=== PATIENT | female | born 1965 | race Caucasian/White ===

== ENCOUNTER 2021-12-20 10:03 | Emergency (ER) | payer MEDICARE, OTHER ==
[~2021-12-20] VITALS: Ht 167.6 cm; Wt 94.0 kg
[2021-12-20 13:57] LABS: BASO % 0.5 % (0.0-1.0); EOS % 0.4 % (0.0-3.0); HEMOGLOBIN 14.3 g/dl (12.0-15.5); LYMPH # 2.1 10^3/uL (1.5-5.0); LYMPH % 24.9 % (24.0-44.0); MEAN CORPUSCULAR HEMOGLOBIN 27.1 pg (27.0-33.0); MEAN CORPUSCULAR HGB CONC 33.3 g/dl (32.0-36.5); MEAN CORPUSCULAR VOLUME 81.6 fl (80.0-96.0); MONO # 0.9 10^3/uL (0.0-0.8); MONO % 10.3 % (2.0-8.0); NEUTROPHILS # 5.4 10^3/uL (1.5-8.5); NEUTROPHILS % 63.5 % (36.0-66.0); PLATELET COUNT, AUTOMATED 337 10^3/uL (150-450); RED BLOOD COUNT 5.27 10^6/uL (4.00-5.40); WHITE BLOOD COUNT 8.5 10^3/uL (4.0-10.0)
[2021-12-20 14:39] LABS: ALBUMIN 4.5 GM/DL (3.2-5.2); BILIRUBIN,DIRECT 0.2 MG/DL (0.0-0.2); BILIRUBIN,TOTAL 0.6 MG/DL (0.2-1.0); CALCIUM LEVEL 10.3 MG/DL (8.5-10.1); CREATININE FOR GFR 1.11 MG/DL (0.55-1.30); GLOMERULAR FILTRATION RATE 53.9 (>51); POTASSIUM SERUM 3.4 MEQ/L (3.5-5.1); TOTAL PROTEIN 7.8 GM/DL (6.4-8.2)
[2021-12-20] MEDS ORDERED: NS 1,000 ML IV ONE (14:50)
[2021-12-20] MEDS ORDERED: ONDANSETRON 4MG 2ML VIAL IV ONE (15:05)
[2021-12-20] MEDS ORDERED: ONDA4TAB6 PO (16:24)
[2021-12-20] MEDS ORDERED: CIPR-249 PO (16:24)
[2021-12-20] MEDS ORDERED: CIPROFLOXACIN 500MG TABLET PO ONE (16:25)
[2021-12-20 16:46] VITALS: BP 132/66
== END 2021-12-20 17:17 | disposition home or self-care (01) ==
LOC: M ED 10:03
DX: N10 Acute pyelonephritis (principal); E11.9 Type 2 diabetes mellitus without complications; I10 Essential (primary) hypertension; E78.5 Hyperlipidemia, unspecified; M79.7 Fibromyalgia; E03.9 Hypothyroidism, unspecified; F41.9 Anxiety disorder, unspecified; F32.9 Major depressive disorder, single episode, unspecified; Z87.442 Personal history of urinary calculi; Z91.018 Allergy to other foods; Z91.89 Other specified personal risk factors, not elsewhere classified; Z91.040 Latex allergy status
CPT/HCPCS: 74176; 80048; 80076; 81000; 81015; 83690; 85025; 87088; 87186; 96361; 96374; 99283; J2405

== ENCOUNTER 2021-12-27 08:56 | Emergency (ER) | payer MEDICARE ==
[~2021-12-27] VITALS: Ht 167.6 cm; Wt 91.8 kg
[~2021-12-27 08:56] MED LIST: CIPR-249 PO; ONDA4TAB6 PO
[2021-12-27 09:52] LABS: BASO % 0.4 % (0.0-1.0); EOS # 0.1 10^3/uL (0.0-0.5); EOS % 0.8 % (0.0-3.0); HEMATOCRIT 42.5 % (36.0-47.0); HEMOGLOBIN 13.9 g/dl (12.0-15.5); LYMPH # 1.6 10^3/uL (1.5-5.0); LYMPH % 16.7 % (24.0-44.0); MEAN CORPUSCULAR HEMOGLOBIN 27.4 pg (27.0-33.0); MEAN CORPUSCULAR HGB CONC 32.7 g/dl (32.0-36.5); MEAN CORPUSCULAR VOLUME 83.7 fl (80.0-96.0); NEUTROPHILS # 6.6 10^3/uL (1.5-8.5); NEUTROPHILS % 70.9 % (36.0-66.0); PLATELET COUNT, AUTOMATED 343 10^3/uL (150-450); RED BLOOD COUNT 5.08 10^6/uL (4.00-5.40); WHITE BLOOD COUNT 9.3 10^3/uL (4.0-10.0)
[2021-12-27 10:18] LABS: CALCIUM LEVEL 9.5 MG/DL (8.5-10.1); CREATININE FOR GFR 1.09 MG/DL (0.55-1.30); GLOMERULAR FILTRATION RATE 55.1 (>51); POTASSIUM SERUM 4.1 MEQ/L (3.5-5.1)
[2021-12-27] MEDS ORDERED: METOCLOPRAMIDE 10MG TAB PO ONE (11:50)
[2021-12-27] MEDS ORDERED: CIPR-249 PO (12:53)
[2021-12-27 13:19] VITALS: BP 117/76
== END 2021-12-27 13:21 | disposition home or self-care (01) ==
LOC: M ED 08:56
DX: N39.0 Urinary tract infection, site not specified (principal); E11.9 Type 2 diabetes mellitus without complications; I10 Essential (primary) hypertension; E78.5 Hyperlipidemia, unspecified; M79.7 Fibromyalgia; Z79.899 Other long term (current) drug therapy; Z88.8 Allergy status to other drugs, medicaments and biological substances; Z91.018 Allergy to other foods; Z91.040 Latex allergy status

== ENCOUNTER 2022-10-22 09:54 | Inpatient (IN) | payer MEDICARE ==
[2022-10-22] VITALS (25 sets, daily range): BP systolic 65–101; BP diastolic 28–54; TEMP 97.5; O2SAT 80–100
[~2022-10-22] VITALS: Ht 167.6 cm; Wt 96.2 kg
[2022-10-22] MEDS ORDERED: LEVO125T4 PO (10:19)
[2022-10-22] MEDS ORDERED: OLME20TA2 PO (10:19)
[2022-10-22] MEDS ORDERED: METF500T13 PO (10:19)
[2022-10-22] MEDS ORDERED: LOVA20TA2 PO (10:19)
[2022-10-22] MEDS ORDERED: BUPR300T92 PO (10:19)
[2022-10-22] MEDS ORDERED: POTA-151 PO (10:19)
[2022-10-22] MEDS ORDERED: HYDR50TAB PO (10:19)
[2022-10-22 11:06] LABS: BASO % 0.2 % (0.0-1.0); EOS % 0.1 % (0.0-3.0); HEMATOCRIT 41.2 % (36.0-47.0); HEMOGLOBIN 13.9 g/dl (12.0-15.5); LYMPH # 1.1 10^3/uL (1.5-5.0); LYMPH % 6.8 % (24.0-44.0); MEAN CORPUSCULAR HEMOGLOBIN 27.8 pg (27.0-33.0); MEAN CORPUSCULAR HGB CONC 33.7 g/dl (32.0-36.5); MEAN CORPUSCULAR VOLUME 82.4 fl (80.0-96.0); MONO # 0.3 10^3/uL (0.0-0.8); NEUTROPHILS # 14.7 10^3/uL (1.5-8.5); NEUTROPHILS % 90.5 % (36.0-66.0); PLATELET COUNT, AUTOMATED 341 10^3/uL (150-450); WHITE BLOOD COUNT 16.2 10^3/uL (4.0-10.0)
[2022-10-22] MEDS ORDERED: KETOROLAC 30 MG/ML 1ML VIAL IV ONE (11:15)
[2022-10-22] MEDS ORDERED: NS 1,000 ML IV ONE ×5 (11:15→21:25)
[2022-10-22] MEDS ORDERED: ONDANSETRON 4MG 2ML VIAL IV ONE ×2 (11:15→17:30)
[2022-10-22 11:31] LABS: ALBUMIN 4.3 G/DL (3.2-5.2); BILIRUBIN,DIRECT 0.3 MG/DL (<0.4); BILIRUBIN,TOTAL 0.9 MG/DL (0.3-1.2); CALCIUM LEVEL 9.8 MG/DL (8.5-10.1); CREATININE FOR GFR 1.05 MG/DL (0.55-1.30); GLOMERULAR FILTRATION RATE 57.3 (>51); POTASSIUM SERUM 4.8 MMOL/L (3.5-5.1); TOTAL PROTEIN 7.1 G/DL (5.7-8.2)
[2022-10-22] MEDS ORDERED: ISOVUE-370 76% 100ML VIAL As Ordered ONE (12:15)
[2022-10-22] MEDS ORDERED: METOCLOPRAMIDE INJ 10MG/2ML VIAL IV ONE (13:35)
[2022-10-22] MEDS ORDERED: cefTRIAXone SOD 1 GM in D5W MINI-BAG PLUS 50 ML IV ONE (13:35)
[2022-10-22] MEDS ORDERED: ACETAMINOPHEN 325 MG TAB PO ONE (13:40)
[2022-10-22] MEDS ORDERED: MORPHINE 4 MG/ML 1ML VIAL IV ONE (14:15)
[2022-10-22] MEDS ORDERED: MED REC IN PROGRESS XX SCH (14:45)
[2022-10-22] MEDS ORDERED: GLUCOSE 4GM CHEW TABLET PO PRN (14:55)
[2022-10-22] MEDS ORDERED: GLUCAGON INJ 1MG VIAL SC PRN (14:55)
[2022-10-22] MEDS ORDERED: D5W/0.45% SODIUM CHLORIDE 1,000 ML IV SCH ×2 (14:55→19:00)
[2022-10-22] MEDS ORDERED: HYDROMORPHONE HCL 0.5 MG/ 0.5 ML SYRINGE IV PRN (14:55)
[2022-10-22] MEDS ORDERED: DEXTROSE 50% 50ML SYRINGE IV PRN (14:55)
[2022-10-22 15:26] LABS: RSV AMPLIFICATION NEGATIVE (NEGATIVE)
[2022-10-22] MEDS ORDERED: FLUT15.820 (15:28)
[2022-10-22] MEDS ORDERED: LEVO137T2 PO (15:28)
[2022-10-22] MEDS ORDERED: HOME MED LIST COMPLETE! XX SCH (15:30)
[2022-10-22] MEDS: HYDROMORPHONE HCL 0.5 MG/ 0.5 ML SYRINGE IV PRN (17:04)
[2022-10-22] MEDS ORDERED: ACETAMINOPHEN 1000MG 100ML IV BAG IV ONE (17:05)
[2022-10-22] MEDS ORDERED: MIDAZOLAM INJ 2MG/2ML VIAL As Ordered ONE (17:31)
[2022-10-22] MEDS ORDERED: fentaNYL 100 MCG/2 ML INJECTION As Ordered ONE (17:31)
[2022-10-22] MEDS ORDERED: propofoL 200 MG/20 ML VIAL As Ordered ONE (17:32)
[2022-10-22] MEDS ORDERED: LIDOCAINE 2% 100MG/5ML SDV (FOR ANES.) As Ordered ONE (17:32)
[2022-10-22 17:53] LABS: IONIZED CALCIUM 3.8 MG/DL (4.5-5.3)
[2022-10-22] MEDS ORDERED: ROCURONIUM BROMIDE 50MG/5ML VIAL As Ordered ONE (18:27)
[2022-10-22 18:32] LABS: CALCIUM LEVEL 8.2 MG/DL (8.5-10.1); CREATININE FOR GFR 1.41 MG/DL (0.55-1.30); GLOMERULAR FILTRATION RATE 40.8 (>51); MAGNESIUM LEVEL 1.3 MG/DL (1.8-2.4); POTASSIUM SERUM 3.9 MMOL/L (3.5-5.1)
[2022-10-22] MEDS: PIPERACILLIN/TAZOBACTAM SOD 3.375 GM in D5W MINI-BAG PLUS 50 ML IV SCH (18:38)
[2022-10-22] MEDS ORDERED: SUCCINYLCHOLINE 100MG/5ML SYRINGE As Ordered ONE (18:41)
[2022-10-22] MEDS ORDERED: PHENYLephrine 500MCG 5ML (100MCG/ML) SYRINGE As Ordered ONE (18:47)
[2022-10-22] MEDS ORDERED: VASOPRESSIN INJ 20UNITS/ML 1ML VIAL As Ordered ONE (18:48)
[2022-10-22] MEDS: LIDOCAINE 2% 5ML JELLY UROJET As Ordered ONE ×2 (18:49→18:53)
[2022-10-22] MEDS: ISOVUE-300 61% 100ML VIAL As Ordered ONE ×2 (18:51→18:55)
[2022-10-22] MEDS ORDERED: CALCIUM GLUCONATE 1,000 MG in D5W MINI-BAG PLUS 100 ML IV ONE ×2 (19:00→22:00)
[2022-10-22] MEDS ORDERED: PHENYLEPHRINE 10MG/ML 1ML VIAL As Ordered ONE (20:18)
[2022-10-22] MEDS ORDERED: PHENYLEPHRINE HCL INJ 10 MG in D5W 100 ML IV SCH (20:30)
[2022-10-22] MEDS: INSULIN LISPRO (NovoLOG) PER UNIT SC SCH (21:30)
[2022-10-22] MEDS ORDERED: NS 1,000 ML IV SCH (21:50)
[2022-10-22] MEDS: MAG SULF 1GM/100ML (MAG RUN) 1 GM in IV 1 EA IV SCH ×3 (22:16→23:55)
[2022-10-22] MEDS: NOREPINEPHRINE 4MG IN D5 250ML 4 MG in IV 1 EA IV SCH ×2 (22:20)
[2022-10-23] VITALS (102 sets, daily range): BP systolic 77–160; BP diastolic 47–86; TEMP 96.9–97.8; O2SAT 88–99
[2022-10-23] MEDS: MAG SULF 1GM/100ML (MAG RUN) 1 GM in IV 1 EA IV SCH (00:59)
[2022-10-23] MEDS: PIPERACILLIN/TAZOBACTAM SOD 3.375 GM in D5W MINI-BAG PLUS 50 ML IV SCH ×4 (01:07→18:04)
[2022-10-23] MEDS: NOREPINEPHRINE 4MG IN D5 250ML 4 MG in IV 1 EA IV SCH ×12 (01:12→18:31)
[2022-10-23] MEDS: HYDROCORTISONE 100MG/2ML VIAL IV SCH ×4 (02:46→20:32)
[2022-10-23] MEDS: LEVOTHYROXINE 137MCG TABLET (0.137MG) PO SCH (05:32)
[2022-10-23] MEDS: INSULIN LISPRO (NovoLOG) PER UNIT SC SCH ×4 (05:32→18:00)
[2022-10-23 05:53] LABS: HEMATOCRIT 35.1 % (36.0-47.0); HEMOGLOBIN 11.4 g/dl (12.0-15.5); MEAN CORPUSCULAR HEMOGLOBIN 27.8 pg (27.0-33.0); MEAN CORPUSCULAR HGB CONC 32.5 g/dl (32.0-36.5); MEAN CORPUSCULAR VOLUME 85.6 fl (80.0-96.0)
[2022-10-23 06:03] LABS: PLATELET COUNT, AUTOMATED 177 10^3/uL (150-450)
[2022-10-23 06:11] LABS: CALCIUM LEVEL 8.1 MG/DL (8.5-10.1); CREATININE FOR GFR 1.49 MG/DL (0.55-1.30); GLOMERULAR FILTRATION RATE 38.3 (>51); POTASSIUM SERUM 3.3 MMOL/L (3.5-5.1)
[2022-10-23] MEDS ORDERED: NS 500 ML IV ONE (06:20)
[2022-10-23] MEDS ORDERED: KCL 20MEQ IN 100ML SWI (KRUN) 20 MEQ in IV 1 EA IV ONE ×2 (07:00)
[2022-10-23] MEDS: ONDANSETRON 4MG 2ML VIAL IV PRN ×2 (07:09→13:12)
[2022-10-23] MEDS: ACETAMINOPHEN TAB 650MG DOSE (2X325MG) PO PRN (07:39)
[2022-10-23 08:05] LABS: LYMPHOCYTES 3 % (16-44); MONOCYTES 5 % (0-5); MYELOCYTES 1 % (0-0); NEUTROPHILS 69 % (28-66); PLATELET ESTIMATE NORMAL (NORMAL)
[2022-10-23 08:06] LABS: DOHLE BODIES 1+; TOXIC VACUOLATION 2+
[2022-10-23] MEDS ORDERED: SUMAtriptan SUCCINATE 6MG/0.5ML VIAL SC ONE (08:40)
[2022-10-23] MEDS ORDERED: PROCHLORPERAZINE 5MG TAB PO PRN (08:40)
[2022-10-23] MEDS ORDERED: PROCHLORPERAZINE 10MG 2ML VIAL IV ONE (08:40)
[2022-10-23] MEDS: buPROPion **XL** TABLET 150MG (WELLBUTRIN XL) PO SCH (08:57)
[2022-10-23] MEDS: HYDROMORPHONE HCL 0.5 MG/ 0.5 ML SYRINGE IV PRN ×2 (09:04→13:38)
[2022-10-23] MEDS ORDERED: VASOPRESSIN INJ 20 UNITS in NS 499 ML IV SCH (13:55)
[2022-10-23] MEDS ORDERED: cefTRIAXone SOD 1 GM in D5W MINI-BAG PLUS 50 ML IV SCH (14:00)
[2022-10-23] MEDS: VASOPRESSIN INJ 20 UNITS in NS 499 ML IV SCH ×2 (14:05→21:30)
[2022-10-23] MEDS ORDERED: diphenhydrAMINE 50MG/ML VIAL IV ONE (17:30)
[2022-10-23] MEDS ORDERED: dexAMETHasone 20MG/5ML VIAL IV ONE (17:30)
[2022-10-23] MEDS ORDERED: LIDOCAINE 5% (LIDODERM) PATCH TD PRN (18:10)
[2022-10-23] MEDS: SIMVASTATIN 20 MG TAB PO SCH (20:32)
[2022-10-23] MEDS: KETOROLAC 30 MG/ML 1ML VIAL IV PRN (21:50)
[2022-10-24] VITALS (52 sets, daily range): BP systolic 90–117; BP diastolic 53–73; TEMP 97.6–99.3; O2SAT 83–98
[2022-10-24] MEDS: NOREPINEPHRINE 4MG IN D5 250ML 4 MG in IV 1 EA IV SCH ×2 (02:25)
[2022-10-24] MEDS: KETOROLAC 30 MG/ML 1ML VIAL IV PRN ×2 (04:13→20:40)
[2022-10-24 04:30] LABS: HEMATOCRIT 32.2 % (36.0-47.0); HEMOGLOBIN 10.9 g/dl (12.0-15.5); MEAN CORPUSCULAR HEMOGLOBIN 28.4 pg (27.0-33.0); MEAN CORPUSCULAR HGB CONC 33.9 g/dl (32.0-36.5); MEAN CORPUSCULAR VOLUME 83.9 fl (80.0-96.0); PLATELET COUNT, AUTOMATED 128 10^3/uL (150-450); RED BLOOD COUNT 3.84 10^6/uL (4.00-5.40)
[2022-10-24 04:45] LABS: WHITE BLOOD COUNT 36.4 10^3/uL (4.0-10.0)
[2022-10-24 04:59] LABS: CALCIUM LEVEL 8.6 MG/DL (8.5-10.1); CREATININE FOR GFR 1.13 MG/DL (0.55-1.30); GLOMERULAR FILTRATION RATE 52.6 (>51); PHOSPHORUS LEVEL 3.6 MG/DL (2.5-4.9); POTASSIUM SERUM 3.8 MMOL/L (3.5-5.1)
[2022-10-24] MEDS: INSULIN LISPRO (NovoLOG) PER UNIT SC SCH ×5 (05:00→21:00)
[2022-10-24 05:13] LABS: LYMPHOCYTES 1 % (16-44); METAMYELOCYTES 5 % (0-0); MONOCYTES 1 % (0-5); MYELOCYTES 8 % (0-0); NEUTROPHILS 79 % (28-66)
[2022-10-24 05:14] LABS: PLATELET ESTIMATE NORMAL (NORMAL)
[2022-10-24] MEDS: LEVOTHYROXINE 125MCG TABLET (0.125MG) PO SCH (05:58)
[2022-10-24] MEDS: PIPERACILLIN/TAZOBACTAM SOD 3.375 GM in D5W MINI-BAG PLUS 50 ML IV SCH ×3 (05:59)
[2022-10-24] MEDS: buPROPion **XL** TABLET 150MG (WELLBUTRIN XL) PO SCH (09:29)
[2022-10-24] MEDS: cefTRIAXone SOD 1 GM in D5W MINI-BAG PLUS 50 ML IV SCH (12:59)
[2022-10-24] MEDS ORDERED: GLUCOSE 4GM CHEW TABLET PO PRN (17:30)
[2022-10-24] MEDS ORDERED: DEXTROSE 50% 50ML SYRINGE IV PRN (17:30)
[2022-10-24] MEDS ORDERED: GLUCAGON INJ 1MG VIAL SC PRN (17:30)
[2022-10-24] MEDS: ONDANSETRON 4MG 2ML VIAL IV PRN (17:54)
[2022-10-24] MEDS ORDERED: NEOSPORIN OINT 0.9 GM PKT TOP ONE (19:50)
[2022-10-24] MEDS: SIMVASTATIN 20 MG TAB PO SCH (20:40)
[2022-10-24] MEDS: ENOXAPARIN 40MG/0.4ML SYRINGE (J1650 PER 10MG) SC SCH (20:41)
[2022-10-25 00:07] VITALS: BP 112/56; TEMP 97; O2SAT 97
[2022-10-25 04:17] VITALS: BP 102/57; TEMP 97.3; O2SAT 94
[2022-10-25 04:48] LABS: HEMATOCRIT 30.8 % (36.0-47.0); HEMOGLOBIN 10.4 g/dl (12.0-15.5); MEAN CORPUSCULAR HEMOGLOBIN 28.5 pg (27.0-33.0); MEAN CORPUSCULAR HGB CONC 33.8 g/dl (32.0-36.5); MEAN CORPUSCULAR VOLUME 84.4 fl (80.0-96.0); PLATELET COUNT, AUTOMATED 118 10^3/uL (150-450); RED BLOOD COUNT 3.65 10^6/uL (4.00-5.40)
[2022-10-25 04:50] LABS: WHITE BLOOD COUNT 32.7 10^3/uL (4.0-10.0)
[2022-10-25 05:17] LABS: LYMPHOCYTES 2 % (16-44); METAMYELOCYTES 1 % (0-0); MONOCYTES 1 % (0-5); MYELOCYTES 1 % (0-0); NEUTROPHILS 93 % (28-66); PLATELET ESTIMATE NORMAL (NORMAL)
[2022-10-25 05:19] LABS: CALCIUM LEVEL 8.5 MG/DL (8.5-10.1); CREATININE FOR GFR 1.09 MG/DL (0.55-1.30); GLOMERULAR FILTRATION RATE 54.9 (>51); POTASSIUM SERUM 3.9 MMOL/L (3.5-5.1)
[2022-10-25] MEDS: LEVOTHYROXINE 137MCG TABLET (0.137MG) PO SCH (06:03)
[2022-10-25] MEDS: INSULIN LISPRO (NovoLOG) PER UNIT SC SCH ×4 (07:30→20:32)
[2022-10-25 08:00] VITALS: BP 113/68; TEMP 97.8; O2SAT 98
[2022-10-25] MEDS ORDERED: LACTOBACILLUS ACIDOPHILUS CAP (BACID) PO SCH (09:10)
[2022-10-25] MEDS: buPROPion **XL** TABLET 150MG (WELLBUTRIN XL) PO SCH (09:52)
[2022-10-25 12:00] VITALS: BP 132/69; TEMP 98.3; O2SAT 96
[2022-10-25] MEDS: cefTRIAXone SOD 1 GM in D5W MINI-BAG PLUS 50 ML IV SCH (12:05)
[2022-10-25] MEDS: LACTOBACILLUS ACIDOPHILUS CAP (BACID) PO SCH ×2 (12:05→20:32)
[2022-10-25 16:00] VITALS: BP 125/77; TEMP 97.9; O2SAT 96
[2022-10-25 19:48] VITALS: BP 116/56; TEMP 98.1; O2SAT 96
[2022-10-25] MEDS: SIMVASTATIN 20 MG TAB PO SCH (20:32)
[2022-10-25] MEDS: ENOXAPARIN 40MG/0.4ML SYRINGE (J1650 PER 10MG) SC SCH (20:32)
[2022-10-26 00:31] VITALS: BP 153/70; TEMP 98; O2SAT 98
[2022-10-26 04:39] LABS: BASO # 0.1 10^3/uL (0.0-0.2); BASO % 0.3 % (0.0-1.0); EOS # 0.2 10^3/uL (0.0-0.5); EOS % 0.9 % (0.0-3.0); HEMATOCRIT 32.6 % (36.0-47.0); HEMOGLOBIN 10.7 g/dl (12.0-15.5); LYMPH # 1.7 10^3/uL (1.5-5.0); LYMPH % 9.9 % (24.0-44.0); MEAN CORPUSCULAR HEMOGLOBIN 27.4 pg (27.0-33.0); MEAN CORPUSCULAR HGB CONC 32.8 g/dl (32.0-36.5); MEAN CORPUSCULAR VOLUME 83.6 fl (80.0-96.0); MONO # 1.2 10^3/uL (0.0-0.8); NEUTROPHILS # 13.9 10^3/uL (1.5-8.5); NEUTROPHILS % 81.3 % (36.0-66.0); PLATELET COUNT, AUTOMATED 142 10^3/uL (150-450); WHITE BLOOD COUNT 17.2 10^3/uL (4.0-10.0)
[2022-10-26 05:00] LABS: BLOOD UREA NITROGEN 28 MG/DL (9-23); CALCIUM LEVEL 8.2 MG/DL (8.5-10.1); CARBON DIOXIDE LEVEL 28 MMOL/L (20-31); CHLORIDE LEVEL 109 MMOL/L (98-107); CREATININE FOR GFR 0.95 MG/DL (0.55-1.30); GLOMERULAR FILTRATION RATE > 60.0 (>51); GLUCOSE, FASTING 76 MG/DL (60-100); POTASSIUM SERUM 3.6 MMOL/L (3.5-5.1); SODIUM LEVEL 143 MMOL/L (136-145)
[2022-10-26] MEDS: LEVOTHYROXINE 125MCG TABLET (0.125MG) PO SCH (05:00)
[2022-10-26 05:02] VITALS: BP 104/60; TEMP 97.1
[2022-10-26] MEDS: INSULIN LISPRO (NovoLOG) PER UNIT SC SCH ×4 (07:21→21:00)
[2022-10-26 08:00] VITALS: BP 110/61; TEMP 98; O2SAT 98
[2022-10-26] MEDS: buPROPion **XL** TABLET 150MG (WELLBUTRIN XL) PO SCH (08:11)
[2022-10-26] MEDS: ACETAMINOPHEN TAB 650MG DOSE (2X325MG) PO PRN (08:12)
[2022-10-26] MEDS: LACTOBACILLUS ACIDOPHILUS CAP (BACID) PO SCH ×2 (08:12→20:05)
[2022-10-26] MEDS ORDERED: POTASSIUM CHLORIDE 10% LIQ 20MEQ/15ML UDC PO ONE (10:20)
[2022-10-26] MEDS ORDERED: POTASSIUM CHLORIDE 10MEQ SR TABLET PO ONE (10:55)
[2022-10-26] MEDS: cefTRIAXone SOD 1 GM in D5W MINI-BAG PLUS 50 ML IV SCH (12:12)
[2022-10-26 16:00] VITALS: BP 124/72; TEMP 97.8; O2SAT 99
[2022-10-26] MEDS: SIMVASTATIN 20 MG TAB PO SCH (20:05)
[2022-10-26] MEDS: ENOXAPARIN 40MG/0.4ML SYRINGE (J1650 PER 10MG) SC SCH (20:05)
[2022-10-26 20:29] VITALS: BP 127/77; TEMP 97.6; O2SAT 100
[2022-10-26 21:03] VITALS: BP 129/58; TEMP 97.3; O2SAT 97
[2022-10-27] MEDS: LEVOTHYROXINE 137MCG TABLET (0.137MG) PO SCH (05:45)
[2022-10-27 06:00] VITALS: BP 135/70; TEMP 97.9; O2SAT 95
[2022-10-27 06:09] LABS: HEMATOCRIT 32.1 % (36.0-47.0); HEMOGLOBIN 10.8 g/dl (12.0-15.5); MEAN CORPUSCULAR HEMOGLOBIN 27.6 pg (27.0-33.0); MEAN CORPUSCULAR HGB CONC 33.6 g/dl (32.0-36.5); MEAN CORPUSCULAR VOLUME 82.1 fl (80.0-96.0); PLATELET COUNT, AUTOMATED 164 10^3/uL (150-450); RED BLOOD COUNT 3.91 10^6/uL (4.00-5.40); WHITE BLOOD COUNT 8.5 10^3/uL (4.0-10.0)
[2022-10-27 06:28] LABS: BLOOD UREA NITROGEN 18 MG/DL (9-23); CARBON DIOXIDE LEVEL 25 MMOL/L (20-31); CHLORIDE LEVEL 109 MMOL/L (98-107); CREATININE FOR GFR 0.76 MG/DL (0.55-1.30); GLOMERULAR FILTRATION RATE > 60.0 (>51); GLUCOSE, FASTING 71 MG/DL (60-100); POTASSIUM SERUM 3.5 MMOL/L (3.5-5.1); SODIUM LEVEL 143 MMOL/L (136-145)
[2022-10-27] MEDS: INSULIN LISPRO (NovoLOG) PER UNIT SC SCH (07:17)
[2022-10-27 07:40] LABS: ATYPICAL LYMPH 6 % (0-5); BASOPHILS 1 % (0-1); EOSINOPHILS 1 % (0-3); LYMPHOCYTES 19 % (16-44); MONOCYTES 16 % (0-5); NEUTROPHILS 56 % (28-66); PLASMA CELL 1 % (0-0)
[2022-10-27 07:41] LABS: PLATELET ESTIMATE NORMAL (NORMAL)
[2022-10-27] MEDS: buPROPion **XL** TABLET 150MG (WELLBUTRIN XL) PO SCH (09:06)
[2022-10-27] MEDS: LACTOBACILLUS ACIDOPHILUS CAP (BACID) PO SCH (09:06)
[2022-10-27] MEDS: ACETAMINOPHEN TAB 650MG DOSE (2X325MG) PO PRN (09:08)
[2022-10-27] MEDS ORDERED: PROB250C PO (11:39)
[2022-10-27] MEDS ORDERED: POTA-151 PO (11:39)
[2022-10-27] MEDS ORDERED: LEVO750T14 PO (11:39)
== END 2022-10-27 12:40 | disposition home health service (06) | DRG 853 ==
LOC: M ED 09:54 → M ED INP 14:47 → ENRESERV 20:50 → M ICU 21:11 → M MSPAV 10-26 21:01
PROVIDERS: ADMIT General Practice; ATTEND Internal Medicine
PROC: 0T778DZ Dilation of Left Ureter with Intraluminal Device, Via Natural or Artificial Opening Endoscopic (ICD-10-PCS; principal; 2022-10-22 18:00)
DX: A41.9 Sepsis, unspecified organism (principal); R65.21 Severe sepsis with septic shock; N17.0 Acute kidney failure with tubular necrosis; N13.6 Pyonephrosis; K76.0 Fatty (change of) liver, not elsewhere classified; M79.7 Fibromyalgia; F41.9 Anxiety disorder, unspecified; F32.A Depression, unspecified; E03.9 Hypothyroidism, unspecified; E87.6 Hypokalemia; B96.20 Unspecified Escherichia coli [E. coli] as the cause of diseases classified elsewhere; G43.909 Migraine, unspecified, not intractable, without status migrainosus; F39 Unspecified mood [affective] disorder; R19.7 Diarrhea, unspecified; E11.9 Type 2 diabetes mellitus without complications; I10 Essential (primary) hypertension; E78.00 Pure hypercholesterolemia, unspecified; Z79.890 Hormone replacement therapy; Z79.84 Long term (current) use of oral hypoglycemic drugs; Z79.899 Other long term (current) drug therapy; Z88.8 Allergy status to other drugs, medicaments and biological substances; Z91.018 Allergy to other foods; Z91.040 Latex allergy status

== ENCOUNTER → 2022-11-02 | Outpatient (REF) | payer MEDICARE ==
[~2022-11-02] MED LIST changes: +BUPR300T92 PO; +CO Q200C10 PO; +FLUT15.820; +HYDR50TAB PO; +LEVO125T4 PO; +LEVO137T2 PO; +LEVO750T14 PO; +LOVA20TA2 PO; +METF500T13 PO; +OLME20TA2 PO; +OMEG10002 PO; +POTA-151 PO; +PROB250C PO; +THERTAB52 PO
== END ==
LOC: M SMT 17:11
PROVIDERS: ATTEND Urology
DX: Z01.818 Encounter for other preprocedural examination (principal); N20.0 Calculus of kidney; N39.0 Urinary tract infection, site not specified

== ENCOUNTER → 2022-11-06 | Outpatient (CLI) | payer MEDICARE ==
[~2022-11-06] MED LIST changes: -CO Q200C10 PO; -OMEG10002 PO; -THERTAB52 PO
[2022-11-06 17:57] LABS: HEMOGLOBIN 12.9 g/dl (12.0-15.5); MEAN CORPUSCULAR HEMOGLOBIN 27.3 pg (27.0-33.0); MEAN CORPUSCULAR HGB CONC 31.5 g/dl (32.0-36.5); MEAN CORPUSCULAR VOLUME 86.9 fl (80.0-96.0); PLATELET COUNT, AUTOMATED 624 10^3/uL (150-450); RED BLOOD COUNT 4.72 10^6/uL (4.00-5.40); WHITE BLOOD COUNT 9.4 10^3/uL (4.0-10.0)
[2022-11-06 18:17] LABS: CREATININE FOR GFR 1.2 MG/DL (0.55-1.30); GLOMERULAR FILTRATION RATE 49.1 (>51); POTASSIUM SERUM 4.4 MMOL/L (3.5-5.1)
== END ==
LOC: M WUC 13:26
PROVIDERS: ATTEND Urology
DX: Z01.818 Encounter for other preprocedural examination (principal); N20.0 Calculus of kidney

== ENCOUNTER 2022-11-10 07:21 | Day surgery (SDC) | payer MEDICARE ==
[~2022-11-10] VITALS: Ht 167.6 cm; Wt 88.9 kg
[~2022-11-10 07:21] MED LIST changes: +CO Q200C10 PO; +OMEG10002 PO; +THERTAB52 PO; +ceFAZolin SOD 2 GM in IV 1 EA IV ONE
[2022-11-10] MEDS ORDERED: propofoL 200 MG/20 ML VIAL As Ordered ONE ×2 (08:13→09:31)
[2022-11-10] MEDS ORDERED: ONDANSETRON 4MG 2ML VIAL As Ordered ONE (08:13)
[2022-11-10] MEDS ORDERED: LIDOCAINE 2% 100MG/5ML SDV (FOR ANES.) As Ordered ONE (08:13)
[2022-11-10] MEDS ORDERED: MIDAZOLAM INJ 2MG/2ML VIAL As Ordered ONE (08:14)
[2022-11-10] MEDS ORDERED: fentaNYL 100 MCG/2 ML INJECTION As Ordered ONE (08:14)
[2022-11-10] MEDS ORDERED: ISOVUE-300 61% 100ML VIAL As Ordered ONE (08:42)
[2022-11-10] MEDS ORDERED: SEVOFLURANE INHAL SOLN 250 ML BTL As Ordered ONE (08:45)
[2022-11-10] MEDS ORDERED: ACETAMINOPHEN 1000MG 100ML IV BAG As Ordered ONE (09:33)
[2022-11-10] MEDS ORDERED: INSULIN LISPRO (NovoLOG) PER UNIT SC PRN (09:55)
[2022-11-10] MEDS ORDERED: HYDROMORPHONE HCL 0.5 MG/ 0.5 ML SYRINGE IV PRN (09:55)
[2022-11-10] MEDS ORDERED: oxyCODONE 5MG TAB PO PRN (09:55)
[2022-11-10] MEDS ORDERED: ONDANSETRON 4MG 2ML VIAL IV PRN (09:55)
[2022-11-10] MEDS ORDERED: fentaNYL 100 MCG/2 ML INJECTION IV PRN (09:55)
[2022-11-10] MEDS ORDERED: LR 1,000 ML IV SCH ×2 (09:55)
[2022-11-10] MEDS ORDERED: METOCLOPRAMIDE INJ 10MG/2ML VIAL IV PRN (09:55)
[2022-11-10 10:59] VITALS: BP 138/69; TEMP 97.5; O2SAT 100
[2022-11-10] MEDS ORDERED: PERCOCET 5MG/325MG TAB PO PRN (11:10)
== END 2022-11-10 11:27 | disposition home or self-care (01) ==
LOC: M SDC 07:21
PROVIDERS: ATTEND Urology
DX: N13.1 Hydronephrosis with ureteral stricture, not elsewhere classified (principal); N20.0 Calculus of kidney; G47.30 Sleep apnea, unspecified; Z88.8 Allergy status to other drugs, medicaments and biological substances; Z91.040 Latex allergy status; Z91.018 Allergy to other foods
CPT/HCPCS: 52356; 76000; 82365; C1769; C1894; C2617; J0131; J0690; J1100; J2250; J2405; J3010; Q9967

== ENCOUNTER → 2023-05-23 | Outpatient (CLI) | payer MEDICARE ==
[~2023-05-23] MED LIST changes: -OLME20TA2 PO; +OLME20TA50 PO; -ceFAZolin SOD 2 GM in IV 1 EA IV ONE
[2023-05-23 10:07] LABS: CALCIUM LEVEL 9.4 MG/DL (8.5-10.1); CHOLESTEROL RISK RATIO 2.89 (<5); CREATININE FOR GFR 1.09 MG/DL (0.55-1.30); GLOMERULAR FILTRATION RATE 54.9 (>51); HDL CHOLESTEROL 49.1 MG/DL (>40); LDL CHOLESTEROL 66.7 MG/DL (<100); NON-HDL-C 92.9 MG/DL; POTASSIUM SERUM 4.1 MMOL/L (3.5-5.1)
[2023-05-23 10:10] LABS: THYROID STIMULATING HORMONE 2.504 uIU/ML (0.55-4.78)
[2023-05-23 10:12] LABS: CREATININE, URINE 114.6 MG/DL; MAU/CREAT RATIO 5.2 MCG/MG (0.0-30.0)
[2023-05-23 11:01] LABS: HEMOGLOBIN A1c 5.1 % (4.0-6.0)
== END ==
LOC: M LAB 08:35
PROVIDERS: ATTEND Family Medicine
DX: E03.9 Hypothyroidism, unspecified (principal); I10 Essential (primary) hypertension; E11.9 Type 2 diabetes mellitus without complications

== ENCOUNTER → 2023-05-23 | Outpatient (CLI) | payer MEDICARE | LOC: M RAD 08:32 | PROVIDERS: ATTEND Urology | DX: N20.0 Calculus of kidney (principal); Z97.5 Presence of (intrauterine) contraceptive device; K59.00 Constipation, unspecified ==

== ENCOUNTER → 2023-05-29 | Outpatient (REF) | payer MEDICARE ==
[2023-05-29 15:55] LABS: APPEARANCE, URINE CLEAR (CLEAR); BACTERIA, URINE AUTO NEGATIVE (NEGATIVE); BILIRUBIN, URINE AUTO NEGATIVE (NEGATIVE); BLOOD, URINE BLOOD NEGATIVE (NEGATIVE); COLOR, URINE YELLOW (YELLOW); GLUCOSE, URINE (UA) AUTO NEGATIVE (NEGATIVE); KETONE, URINE AUTO NEGATIVE (NEGATIVE); LEUKOCYTE ESTERASE, URINE AUTO NEGATIVE (NEGATIVE); MUCUS, URINE SMALL (NEGATIVE); NITRITE, URINE AUTO NEGATIVE (NEGATIVE); PROTEIN, URINE AUTO NEGATIVE (NEGATIVE); RBC, URINE AUTO 1 /HPF (0-3); SPECIFIC GRAVITY URINE AUTO 1.011 (1.002-1.035); SQUAMOUS EPITHELIAL CELL UR AU 0 /HPF (0-6); UROBILINOGEN, URINE AUTO 0.2 mg/dL (0.0-2.0); WBC, URINE AUTO 3 /HPF (0-3)
== END ==
LOC: M SMT 15:18
PROVIDERS: ATTEND Nurse Practitioner Family
DX: N20.0 Calculus of kidney (principal)

== ENCOUNTER → 2023-12-05 | Outpatient (CLI) | payer MEDICARE ==
[~2023-12-05] MED LIST changes: +BUPR-597 PO; -BUPR300T92 PO; +ONDA-282 PO; -ONDA4TAB6 PO
== END ==
LOC: M WUC 10:24
PROVIDERS: ATTEND Nurse Practitioner Family
DX: N20.0 Calculus of kidney (principal)

== ENCOUNTER → 2024-02-14 | Outpatient (CLI) | payer MEDICARE ==
[~2024-02-14] MED LIST changes: -LEVO750T14 PO; +LEVO75TAB PO
[2024-02-14 11:03] LABS: APPEARANCE, URINE HAZY (CLEAR); BACTERIA, URINE AUTO 1+ (NEGATIVE); BILIRUBIN, URINE AUTO NEGATIVE (NEGATIVE); BLOOD, URINE BLOOD NEGATIVE (NEGATIVE); COLOR, URINE YELLOW (YELLOW); GLUCOSE, URINE (UA) AUTO NEGATIVE (NEGATIVE); KETONE, URINE AUTO NEGATIVE (NEGATIVE); LEUKOCYTE ESTERASE, URINE AUTO 1+ (NEGATIVE); MUCUS, URINE SMALL (NEGATIVE); NITRITE, URINE AUTO NEGATIVE (NEGATIVE); PROTEIN, URINE AUTO NEGATIVE (NEGATIVE); RBC, URINE AUTO 2 /HPF (0-3); SPECIFIC GRAVITY URINE AUTO 1.006 (1.002-1.035); SQUAMOUS EPITHELIAL CELL UR AU 0 /HPF (0-6); UROBILINOGEN, URINE AUTO 0.2 mg/dL (0.0-2.0); WBC, URINE AUTO 30 /HPF (0-3)
== END ==
LOC: M WUC 08:08
PROVIDERS: ATTEND Urology
DX: N39.0 Urinary tract infection, site not specified (principal); N20.0 Calculus of kidney

== ENCOUNTER → 2024-02-21 | Outpatient (CLI) | payer MEDICARE ==
[2024-02-21 09:39] LABS: CALCIUM LEVEL 10.2 MG/DL (8.5-10.1); CHOLESTEROL RISK RATIO 3.17 (<5); CREATININE FOR GFR 1.07 MG/DL (0.55-1.30); CREATININE, URINE 186.1 MG/DL; GLOMERULAR FILTRATION RATE 55.9 (>51); HDL CHOLESTEROL 43.8 MG/DL (>40); HEMOGLOBIN A1c 5.2 % (4.0-6.0); LDL CHOLESTEROL 67.8 MG/DL (<100); MAU/CREAT RATIO 3.2 MCG/MG (0.0-30.0); NON-HDL-C 95.2 MG/DL; POTASSIUM SERUM 3.7 MMOL/L (3.5-5.1)
[2024-02-21 09:41] LABS: THYROID STIMULATING HORMONE 5.038 uIU/ML (0.55-4.78)
== END ==
LOC: M LAB 08:37
PROVIDERS: ATTEND Family Medicine
DX: E11.22 Type 2 diabetes mellitus with diabetic chronic kidney disease (principal); N18.1 Chronic kidney disease, stage 1; E78.2 Mixed hyperlipidemia; E03.9 Hypothyroidism, unspecified

== ENCOUNTER → 2024-05-24 | Outpatient (CLI) | payer MEDICARE ==
[2024-05-24 11:45] LABS: CALCIUM LEVEL 9.7 MG/DL (8.5-10.1); CHOLESTEROL RISK RATIO 2.94 (<5); CREATININE FOR GFR 1.09 MG/DL (0.55-1.30); GLOMERULAR FILTRATION RATE 54.7 (>51); HDL CHOLESTEROL 36.3 MG/DL (>40); LDL CHOLESTEROL 40.5 MG/DL (<100); NON-HDL-C 70.7 MG/DL; POTASSIUM SERUM 4.5 MMOL/L (3.5-5.1)
[2024-05-24 11:48] LABS: THYROID STIMULATING HORMONE 0.781 uIU/ML (0.55-4.78)
== END ==
LOC: M LAB 10:54
PROVIDERS: ATTEND Family Medicine
DX: E11.22 Type 2 diabetes mellitus with diabetic chronic kidney disease (principal); N18.1 Chronic kidney disease, stage 1; E78.2 Mixed hyperlipidemia; E03.9 Hypothyroidism, unspecified

== ENCOUNTER → 2024-12-07 | Outpatient (CLI) | payer MEDICARE ==
[~2024-12-07] MED LIST changes: -BUPR-597 PO; +BUPR-766 PO
== END ==
LOC: M RAD 15:03
PROVIDERS: ATTEND Urology
DX: N20.0 Calculus of kidney (principal)

== ENCOUNTER → 2024-12-18 | Outpatient (CLI) | payer MEDICARE | LOC: M PLAIMG 12:07 | PROVIDERS: ATTEND Urology | DX: N20.0 Calculus of kidney (principal) ==

== ENCOUNTER → 2024-12-27 | Outpatient (CLI) | payer MEDICARE ==
[2024-12-27 13:24] LABS: APPEARANCE, URINE CLEAR (CLEAR); BACTERIA, URINE AUTO NEGATIVE (NEGATIVE); BILIRUBIN, URINE AUTO NEGATIVE (NEGATIVE); BLOOD, URINE BLOOD NEGATIVE (NEGATIVE); GLUCOSE, URINE (UA) AUTO NEGATIVE (NEGATIVE); KETONE, URINE AUTO NEGATIVE (NEGATIVE); LEUKOCYTE ESTERASE, URINE AUTO TRACE (NEGATIVE); NITRITE, URINE AUTO NEGATIVE (NEGATIVE); PROTEIN, URINE AUTO NEGATIVE (NEGATIVE); RBC, URINE AUTO 1 /HPF (0-3); SPECIFIC GRAVITY URINE AUTO 1.003 (1.002-1.035); SQUAMOUS EPITHELIAL CELL UR AU 0 /HPF (0-6); UROBILINOGEN, URINE AUTO 0.2 mg/dL (0.0-2.0); WBC, URINE AUTO 7 /HPF (0-3)
[2024-12-27 13:30] LABS: PLATELET COUNT, AUTOMATED 342 10^3/uL (150-450)
[2024-12-27 13:45] LABS: CALCIUM LEVEL 10.0 MG/DL (8.3-10.6); CARBON DIOXIDE LEVEL 31.0 MMOL/L (20-31); CHLORIDE LEVEL 101.0 MMOL/L (98-107); CREATININE FOR GFR 1.22 MG/DL (0.55-1.30); GLOMERULAR FILTRATION RATE 50.8 (>45); POTASSIUM SERUM 4.3 MMOL/L (3.5-5.1); SODIUM LEVEL 141.0 MMOL/L (136-145)
== END ==
LOC: M RAD 12:25
PROVIDERS: ATTEND Urology
DX: N20.0 Calculus of kidney (principal)

== ENCOUNTER → 2025-01-22 | Outpatient (CLI) | payer MEDICARE ==
[~2025-01-22] MED LIST changes: +AMIT10TA11 PO; +METF-838 PO; +POTA-150 PO
[2025-01-22 09:52] LABS: APPEARANCE, URINE CLEAR (CLEAR); BACTERIA, URINE AUTO NEGATIVE (NEGATIVE); BILIRUBIN, URINE AUTO NEGATIVE (NEGATIVE); BLOOD, URINE BLOOD NEGATIVE (NEGATIVE); GLUCOSE, URINE (UA) AUTO NEGATIVE (NEGATIVE); KETONE, URINE AUTO NEGATIVE (NEGATIVE); LEUKOCYTE ESTERASE, URINE AUTO TRACE (NEGATIVE); NITRITE, URINE AUTO NEGATIVE (NEGATIVE); PROTEIN, URINE AUTO NEGATIVE (NEGATIVE); RBC, URINE AUTO 0 /HPF (0-3); SPECIFIC GRAVITY URINE AUTO 1.005 (1.002-1.035); SQUAMOUS EPITHELIAL CELL UR AU 0 /HPF (0-6); UROBILINOGEN, URINE AUTO 0.2 mg/dL (0.0-2.0); WBC, URINE AUTO 4 /HPF (0-3)
== END ==
LOC: M LAB 09:08
PROVIDERS: ATTEND Urology
DX: N20.0 Calculus of kidney (principal)

== ENCOUNTER 2025-01-30 09:46 | Day surgery (SDC) | payer MEDICARE ==
[~2025-01-30] VITALS: Ht 167.6 cm; Wt 99.5 kg
[2025-01-30] MEDS ORDERED: LR 1,000 ML IV SCH (09:50)
[2025-01-30] MEDS ORDERED: ZOLO25TA PO (10:13)
[2025-01-30] MEDS: ceFAZolin SOD 2 GM IV ONCE IV ONE (10:38)
[2025-01-30] MEDS ORDERED: MIDAZOLAM INJ 2 MG/2 ML VIAL As Ordered ONE (11:12)
[2025-01-30] MEDS ORDERED: dexAMETHasone 4 MG/ML 1 ML VIAL As Ordered ONE (11:14)
[2025-01-30] MEDS ORDERED: LIDOCAINE 2% 100 MG/5 ML SDV (FOR ANES.) As Ordered ONE (11:14)
[2025-01-30] MEDS ORDERED: ONDANSETRON 4MG/2ML VIAL As Ordered ONE (11:14)
[2025-01-30] MEDS ORDERED: ACETAMINOPHEN 1000MG/100ML IV BAG As Ordered ONE (11:14)
[2025-01-30] MEDS ORDERED: OXYB5TAB14 PO (11:23)
[2025-01-30] MEDS: LIDOCAINE 2% 5 ML JELLY UROJET As Ordered ONE (11:48)
[2025-01-30] MEDS: ISOVUE-300 61% 100 ML VIAL As Ordered ONE (11:51)
[2025-01-30] MEDS ORDERED: ONDANSETRON 4MG/2ML VIAL IV PRN (12:20)
[2025-01-30] MEDS ORDERED: MORPHINE 2 MG/ML 1 ML VIAL IV PRN (12:20)
[2025-01-30] MEDS ORDERED: PERCOCET 5MG/325MG TAB PO PRN (12:50)
[2025-01-30 13:00] VITALS: BP 143/81; TEMP 97.1; O2SAT 100
== END 2025-01-30 13:16 | disposition home or self-care (01) ==
LOC: M SDC 09:46
PROVIDERS: ATTEND Urology
DX: N13.2 Hydronephrosis with renal and ureteral calculous obstruction (principal); E11.9 Type 2 diabetes mellitus without complications; E03.9 Hypothyroidism, unspecified; I10 Essential (primary) hypertension; E78.00 Pure hypercholesterolemia, unspecified; G47.30 Sleep apnea, unspecified; K58.9 Irritable bowel syndrome, unspecified; M54.81 Occipital neuralgia; Z79.899 Other long term (current) drug therapy; Z79.890 Hormone replacement therapy; Z91.040 Latex allergy status; Z90.89 Acquired absence of other organs; F41.9 Anxiety disorder, unspecified; F32.A Depression, unspecified; Z88.8 Allergy status to other drugs, medicaments and biological substances
CPT/HCPCS: 52356; 74420; 82365; C1769; C1894; C2617; J0131; J0688; J1100; J2250; J2405; J3010; Q9967

== ENCOUNTER → 2025-03-03 | Outpatient (REF) | payer MEDICARE ==
[~2025-03-03] MED LIST changes: +OXYB5TAB14 PO; +ZOLO25TA PO
[2025-03-03 18:10] LABS: APPEARANCE, URINE CLEAR (CLEAR); BACTERIA, URINE AUTO NEGATIVE (NEGATIVE); BILIRUBIN, URINE AUTO NEGATIVE (NEGATIVE); BLOOD, URINE BLOOD NEGATIVE (NEGATIVE); GLUCOSE, URINE (UA) AUTO NEGATIVE (NEGATIVE); KETONE, URINE AUTO NEGATIVE (NEGATIVE); LEUKOCYTE ESTERASE, URINE AUTO 2+ (NEGATIVE); MUCUS, URINE SMALL (NEGATIVE); NITRITE, URINE AUTO NEGATIVE (NEGATIVE); PROTEIN, URINE AUTO NEGATIVE (NEGATIVE); RBC, URINE AUTO 1 /HPF (0-3); SPECIFIC GRAVITY URINE AUTO 1.009 (1.002-1.035); SQUAMOUS EPITHELIAL CELL UR AU 0 /HPF (0-6); UROBILINOGEN, URINE AUTO 0.2 mg/dL (0.0-2.0); WBC, URINE AUTO 75 /HPF (0-3)
== END ==
LOC: M LABSMT 13:53
PROVIDERS: ATTEND Urology
DX: N39.0 Urinary tract infection, site not specified (principal)